=== PATIENT | female | born 1955 | race African-American/Black ===

== ENCOUNTER 2016-05-18 19:58 | Emergency (ER) | payer BC ==
[~2016-05-18] VITALS: Ht 170.2 cm; Wt 110.0 kg
[~2016-05-18 19:58] MED LIST: AMOXICILLIN500 MG PO; ATENOLOL50 MG PO; BENAZEPRIL10 M1 OR; BENAZEPRIL20 M1 OR; CHLORTHALID25 MG PO; CIPROFLOXACN500 MG PO; CLOTRIMAZOLE1 % VA; DIFLUCAN150 MG PO; FLEXERIL10 MG PO; GLIMEPIRIDE2 MG PO; HYDROCHLOROT12.5 MG OR; HYDROCHLOROT12.5 MG PO; HYDROCHLOROT25 MG PO; JANUVIA100 MG PO; KEFLEX500 MG PO; LASIX20 MG PO; LIPITOR10 MG PO; LIPITOR20 MG PO; LISINOPRIL2.5 MG PO; LORTAB 7.5 PO; LOTENSIN HCT1 TA3 PO; METFORMIN500 MG PO; NAPROSYN500 MG PO; NEXIUM40 M1 OR; NEXIUM40 M1 PO; NORVASC5 MG OR; OMEPRAZOLE20 M2 PO; PRAVACHOL20 MG OR; PRAVASTATIN40 MG PO; PREDNISONE10 MG PO; PROVENTIL HFA IN; RANITIDINE150 MG PO; ROZEREM8 MG OR; TENORMIN50 MG PO; ZITHROMAX500 MG PO; ZOFRAN ODT8 MG SL
[2016-05-18] MEDS ORDERED: MIRTAZAPINE15 MG PO (20:28)
[2016-05-18] MEDS ORDERED: CLOPIDOGREL75 MG PO (20:28)
[2016-05-18] MEDS ORDERED: PRAVASTATIN SOD10 MG PO (20:29)
[2016-05-18 21:42] VITALS: BP 170/80
[2016-05-19] MEDS ORDERED: CLINDAMYCIN300 M1 PO (12:49)
== END 2016-05-18 21:49 | disposition home or self-care (01) | DRG 605 ==
LOC: ED 19:58
PROC: 0HQKXZZ Repair Right Lower Leg Skin, External Approach (ICD-10-PCS; principal; 2016-05-18)
DX: S81.811A Laceration without foreign body, right lower leg, initial encounter (principal); W22.8XXA Striking against or struck by other objects, initial encounter; Y93.89 Activity, other specified; Y92.008 Other place in unspecified non-institutional (private) residence as the place of occurrence of the external cause

== ENCOUNTER 2016-05-19 12:13 | Emergency (ER) | payer BC ==
[~2016-05-19] VITALS: Ht 170.2 cm; Wt 84.0 kg
[~2016-05-19 12:13] MED LIST changes: +CLOPIDOGREL75 MG PO; +MIRTAZAPINE15 MG PO; +PRAVASTATIN SOD10 MG PO
[2016-05-19] MEDS ORDERED: CLINDAMYCIN300 M1 PO (12:49)
[2016-05-19 13:14] VITALS: BP 142/78
== END 2016-05-19 13:26 | disposition home or self-care (01) | DRG 949 ==
LOC: ED 12:13
PROC: 0HQKXZZ Repair Right Lower Leg Skin, External Approach (ICD-10-PCS; principal; 2016-05-19)
DX: S81.811D Laceration without foreign body, right lower leg, subsequent encounter (principal); L76.22 Postprocedural hemorrhage of skin and subcutaneous tissue following other procedure; Y83.9 Surgical procedure, unspecified as the cause of abnormal reaction of the patient, or of later complication, without mention of misadventure at the time of the procedure

== ENCOUNTER 2016-05-26 13:11 | Emergency (ER) | payer BC ==
[~2016-05-26] VITALS: Ht 170.2 cm; Wt 92.0 kg
[~2016-05-26 13:11] MED LIST changes: +CLINDAMYCIN300 M1 PO
[2016-05-26 14:15] VITALS: BP 142/75
== END 2016-05-26 14:15 | disposition home or self-care (01) | DRG 950 ==
LOC: ED 13:11
DX: S81.811D Laceration without foreign body, right lower leg, subsequent encounter (principal)

== ENCOUNTER 2018-04-02 10:47 | Day surgery (SDC) | payer BC ==
[~2018-04-02] VITALS: Ht 160 cm; Wt 99.8 kg
[~2018-04-02 10:47] MED LIST changes: +ASPIRIN81 MG PO; +LIPITOR20 M1 PO; +LISINOPRIL5 MG PO; +METOPROL TAR25 MG PO
[2018-04-02 14:21] VITALS: BP 136/60
== END 2018-04-02 14:35 | disposition home or self-care (01) | DRG 392 ==
LOC: ENDO 10:47 → ORM 11:00 → ENDO 11:00
PROVIDERS: ATTEND Internal Medicine Gastroenterology
PROC: 0DB48ZX Excision of Esophagogastric Junction, Via Natural or Artificial Opening Endoscopic, Diagnostic (ICD-10-PCS; principal; 2018-04-02)
PROC: 0DB78ZX Excision of Stomach, Pylorus, Via Natural or Artificial Opening Endoscopic, Diagnostic (ICD-10-PCS; 2018-04-02)
DX: K29.70 Gastritis, unspecified, without bleeding (principal); K44.9 Diaphragmatic hernia without obstruction or gangrene; K21.9 Gastro-esophageal reflux disease without esophagitis; K57.30 Diverticulosis of large intestine without perforation or abscess without bleeding; K59.00 Constipation, unspecified; K64.8 Other hemorrhoids; I10 Essential (primary) hypertension; E11.9 Type 2 diabetes mellitus without complications; E78.00 Pure hypercholesterolemia, unspecified; Z79.899 Other long term (current) drug therapy; Z86.010 Personal history of colon polyps

== ENCOUNTER 2021-05-29 12:08 | Inpatient (IN) | payer MEDICARE ==
[2021-05-29] VITALS (14 sets, daily range): BP systolic 111–167; BP diastolic 44–74
[~2021-05-29] VITALS: Ht 160 cm; Wt 114.5 kg
[2021-05-29 13:51] LABS: HEMATOCRIT 43.9 % (37.0-47.0); HEMOGLOBIN 12.9 g/dl (12.0-16.0); IMMATURE GRANULOCYTES 0.3 % (0.0-5.0); MEAN CORPUSCULAR HGB 23.2 pG CALC (26.0-32.0); MEAN CORPUSCULAR HGB CONC 29.4 g/dL CAL (32.0-36.0); NEUT# 5.03 thou/uL (2.00-7.15); RED BLOOD COUNT 5.56 mill/uL (4.20-5.60); RED CELL DISTRI WIDTH 18.3 % (11.5-15.5)
[2021-05-29 14:01] LABS: ALBUMIN 4.1 g/dL (3.2-5.0); ALKALINE PHOSPHATASE 110 u/l (38-126); ANION GAP 9 (6-22 (CALC)); BILIRUBIN, TOTAL 0.4 mg/dL (0.0-1.4); BUN 19 mg/dL (8-23); BUN/CREATININE RATIO 21 (12-20 (CALC)); CARBON DIOXIDE 36 mmol/l (22-30); CHLORIDE 98 mmol/l (95-108); CREATININE 0.9 mg/dL (0.5-1.0); GFR > 60 ML/MIN (>=60 (CALC)); GFR FOR AFR.AMER. > 60 ML/MIN (>=60 (CALC)); LIPASE 40 u/l (23-300); SGOT/AST 37 u/l (9-36); SODIUM 140 mmol/l (137-146); TOTAL PROTEIN 8.1 g/dL (6.3-8.2)
[2021-05-29 14:08] LABS: D-DIMER 0.75 mg/L (0.19-0.60)
[2021-05-29 14:10] LABS: PROTHROMBIN TIME 10.3 SECONDS (9.0-12.5)
[2021-05-29 14:13] LABS: MYOGLOBIN 85 ng/mL (0 - 62)
[2021-05-29 17:35] LABS: URINE BILIRUBIN - DIPSTICK NEGATIVE (NEGATIVE); URINE BLOOD DIPSTICK NEGATIVE (NEGATIVE); URINE COLOR YELLOW; URINE GLUCOSE - DIPSTICK NEGATIVE (NEGATIVE); URINE KETONE NEGATIVE (NEGATIVE); URINE LEUK ESTERASE NEGATIVE (NEGATIVE); URINE PROTEIN - DIPSTICK NEGATIVE (NEG-TRACE); URINE UROBILINOGEN - DIPSTICK 0.2 E.U./dL (0.2)
[2021-05-29 17:37] LABS: URINE NITRITE - DIPSTICK NEGATIVE (Negative)
[2021-05-30] VITALS (20 sets, daily range): BP systolic 87–143; BP diastolic 42–75
[2021-05-30 02:56] LABS: HEMATOCRIT 43.3 % (37.0-47.0); HEMOGLOBIN 12.5 g/dl (12.0-16.0); IMMATURE GRANULOCYTES 0.1 % (0.0-5.0); MEAN CELL VOLUME 80.9 fL CALC (80.0-100.0); MEAN CORPUSCULAR HGB 23.4 pG CALC (26.0-32.0); MEAN CORPUSCULAR HGB CONC 28.9 g/dL CAL (32.0-36.0); NEUT# 3.71 thou/uL (2.00-7.15); RED BLOOD COUNT 5.35 mill/uL (4.20-5.60); RED CELL DISTRI WIDTH 18.3 % (11.5-15.5)
[2021-05-30 03:13] LABS: ACT PARTIAL THROMBO TIME 26.4 SECONDS (20.0-32.5); PROTHROMBIN TIME 10.4 SECONDS (9.0-12.5)
[2021-05-30 05:46] LABS: HEMATOCRIT 42.3 % (37.0-47.0); HEMOGLOBIN 12.2 g/dl (12.0-16.0); MEAN CELL VOLUME 80.7 fL CALC (80.0-100.0); MEAN CORPUSCULAR HGB 23.3 pG CALC (26.0-32.0); MEAN CORPUSCULAR HGB CONC 28.8 g/dL CAL (32.0-36.0); RED BLOOD COUNT 5.24 mill/uL (4.20-5.60); RED CELL DISTRI WIDTH 17.9 % (11.5-15.5)
[2021-05-30 06:24] LABS: BUN 20 mg/dL (8-23); BUN/CREATININE RATIO 23 (12-20 (CALC)); CALCULATED LDLCHOLESTEROL 142 mg/dL (62-129 (CALC)); CARBON DIOXIDE 33 mmol/l (22-30); CHLORIDE 100 mmol/l (95-108); CHOLESTEROL HDL RATIO 3.7 (<4.4 (CALC)); CREATININE 0.9 mg/dL (0.5-1.0); GFR > 60 ML/MIN (>=60 (CALC)); GFR FOR AFR.AMER. > 60 ML/MIN (>=60 (CALC)); HDL CHOLESTEROL 57 mg/dL (>=40); MAGNESIUM 2.2 mg/dL (1.6-2.3); SODIUM 139 mmol/l (137-146); TOTAL CHOLESTEROL 210 mg/dl (0-199); TOTAL TRIGLYCERIDES 51 mg/dl (30-149); VLDL CHOLESTROL 10 mg/dl (1-41 (CALC))
[2021-05-30 06:26] LABS: ANION GAP 11 (6-22 (CALC)); POTASSIUM 4.6 mmol/l (3.5-5.1)
== END 2021-05-30 20:15 | disposition short-term general hospital (02) | DRG 280 ==
LOC: ED 12:08 → ED-I 12:39 → ED 16:59 → MS2 17:00 → ICU 17:00
PROVIDERS: Nurse Practitioner; ADMIT Internal Medicine; ATTEND Internal Medicine
DX: I21.4 Non-ST elevation (NSTEMI) myocardial infarction (principal); J18.9 Pneumonia, unspecified organism; J96.02 Acute respiratory failure with hypercapnia; J96.01 Acute respiratory failure with hypoxia; Z68.41 Body mass index [BMI] 40.0-44.9, adult; I10 Essential (primary) hypertension; E11.51 Type 2 diabetes mellitus with diabetic peripheral angiopathy without gangrene; E78.5 Hyperlipidemia, unspecified; I25.10 Atherosclerotic heart disease of native coronary artery without angina pectoris; E66.01 Morbid (severe) obesity due to excess calories; K21.9 Gastro-esophageal reflux disease without esophagitis; Z95.820 Peripheral vascular angioplasty status with implants and grafts; Z79.84 Long term (current) use of oral hypoglycemic drugs; Z87.891 Personal history of nicotine dependence; Z20.822 Contact with and (suspected) exposure to COVID-19; Z79.02 Long term (current) use of antithrombotics/antiplatelets
CPT/HCPCS: J1644; Q9967